=== PATIENT | male | born 1985 | race Caucasian/White ===

== ENCOUNTER 2021-06-29 13:30 | Outpatient (CLI) | payer OTHER, SELFPAY ==
--- NOTE | 2021-06-29 09:45 | DI.RAD_ITS ---
Exam(s) XR ANKLE LT COMPLETE EXAM: XR ANKLE LT COMPLETE CLINICAL HISTORY: Persistent pain despite conservative treatment,h/o inversion injury,lt pain. TECHNIQUE: 2D digital imaging was performed. COMPARISON: No exams were available for comparison FINDINGS: Soft tissue swelling.. No widening of the mortise. Talar dome unremarkable. No ankle joint space n arrowing. However, on the lateral view there is a 5 by 3 millimeter calcific density seen in the ant erior aspect of the ankle joint, just anterior to the tibial plateau formed. This is not a normal fi nding and does not have the appearance of an accessory ossicle. There does not appear to be an obvio us corresponding defect in the adjacent distal tibia. Os trigonum is noted. There is no evidence of osseous tarsal coalition. No inferior calcaneal spur. IMPRESSION: There is a 5 x 3 millimeter calcific density-loose body in the anterior aspect of the ankle joint, se en on the lateral view. No other significant radiographic findings. Hip DATA REPOSITORY: RADIATION DOSE DELIVERED:
== END 2021-06-29 13:50 ==
PROVIDERS: PCP Nurse Practitioner Family; Visit Provider Nurse Practitioner Family
DX: M25.572 Pain in left ankle and joints of left foot (principal); M24.072 Loose body in left ankle
CPT/HCPCS: 73610